=== PATIENT | female | born 1980 | race African-American/Black ===

== ENCOUNTER 2020-05-25 21:23 | Emergency (ER) | payer OTHER ==
[~2020-05-25] VITALS: Ht 154.9 cm; Wt 78.0 kg
[2020-05-25 21:27] VITALS: TEMP 98.8
[2020-05-25 21:56] LABS: PLATELET COUNT 239 K/uL (152-353)
[2020-05-25 22:03] LABS: POTASSIUM 3.3 mmol/L (3.6-5.2)
[2020-05-25 22:50] VITALS: BP 148/78
== END 2020-05-25 22:51 | disposition home or self-care (01) ==
LOC: ED 21:23
PROVIDERS: Hospitalist
DX: R11.2 Nausea with vomiting, unspecified (principal); K52.89 Other specified noninfective gastroenteritis and colitis; N30.80 Other cystitis without hematuria
CPT/HCPCS: 36415; 80053; 81000; 81025; 83690; 85027; 87088; 96360; 96374; 99284; J2405

== ENCOUNTER 2021-06-25 09:27 | Outpatient (CLI) | payer OTHER | END 2021-06-25 20:45 | disposition home or self-care (01) | LOC: MAMMO 09:27 | PROVIDERS: ATTEND Nurse Practitioner Family | DX: Z12.31 Encounter for screening mammogram for malignant neoplasm of breast (principal) ==

== ENCOUNTER 2022-02-11 08:27 | Outpatient (CLI) | payer OTHER | END 2022-02-11 20:19 | disposition home or self-care (01) | LOC: CT 08:27 | PROVIDERS: ATTEND Internal Medicine | DX: R51.9 Headache, unspecified (principal); Z85.41 Personal history of malignant neoplasm of cervix uteri; H81.09 Meniere's disease, unspecified ear; Z08 Encounter for follow-up examination after completed treatment for malignant neoplasm ==

== ENCOUNTER 2022-05-24 17:03 | Outpatient (CLI) | payer OTHER | END 2022-05-24 20:38 | disposition home or self-care (01) | LOC: LAB 17:03 | PROVIDERS: ATTEND Nurse Practitioner Family | DX: R19.7 Diarrhea, unspecified (principal) | CPT/HCPCS: 82272; 83630; 87015; 87045; 87324; 87328; 87329; 87449; 87899 ==